=== PATIENT | male | born 2000 | race Caucasian/White ===

== ENCOUNTER 2022-05-25 09:33 | Emergency (ER) | payer MEDICAID, OTHER ==
[~2022-05-25] VITALS: Ht 167.6 cm; Wt 93.0 kg
[2022-05-25 09:49] VITALS: BP 121/62
--- NOTE | 2022-05-25 10:40 | NUR ---
21 Y/O MALE C/O RIGHT SHOULDER PAIN POSSIBLE [id number] TODAY S/P SEIZURE. PER PT HE HAD A WITNESSED SEIZURE 3MIN, TONIC CLONIC, FELL AND HIT HIS HEAD AND RIGHT SHOULDER ON THE FLOOR. NKA PMH: EPILEPSY, BLOOD CLOT IN HEAD RX: [id number] 750 BID
[2022-05-25] MEDS ORDERED: KETOROLAC 60 MG/2 ML VIAL IM ONE (10:50)
--- NOTE | 2022-05-25 11:41 | NUR ---
DR SYLVESTER AT PT SIDE FOR EVAL
[2022-05-25] MEDS ORDERED: IBUP-2213 PO (11:47)
[2022-05-25 12:06] VITALS: BP 109/73
--- NOTE | 2022-05-25 12:06 | NUR ---
Patient discharged with v/s stable. Written and verbal after care instructions given. Patient alert, oriented and verbalized understanding of instructions. Ambulatory with steady gait. All questions addressed prior to discharge. ID band removed. Patient advised to follow up with PMD. Rx of Ibuprofen given. Opportunity to ask questions provided and answered. WORK NOTE HANDED TO PATIENT.
== END 2022-05-25 12:06 | disposition home or self-care (01) ==
LOC: MED 09:33
DX: M25.511 Pain in right shoulder (principal); Z79.899 Other long term (current) drug therapy
CPT/HCPCS: 73030; 96372; 99283; J1885